=== PATIENT | male | born 1975 | race Caucasian/White ===

== ENCOUNTER 2018-03-07 23:49 | Inpatient (IN) | payer SELFPAY ==
[2018-03-08] MEDS ORDERED: Morphine 4 MG/ML VIAL ONE (00:32)
[2018-03-08] MEDS ORDERED: Ondansetron PF 4 MG/2 ML Vial ONE (00:32)
[2018-03-08 00:33] LABS: Hemoglobin 18.1 g/dL (14.0-18.0); Mean Corpuscular Hemoglobin 34.4 pg (27.0-31.0); Mean Corpuscular Volume 88.9 fL (78.0-98.0); Red Blood Cell (RBC) Count 5.25 mill/uL (4.70-6.10); White Blood Cell (WBC) Count 13.9 thou/uL (4.8-10.8)
[2018-03-08 00:51] LABS: Band 5 % (5-11); Eosinophils 5 % (0-10); Lymphocytes 9 % (21-51); MDiff Complete? YES; Mean Corpuscular HGB CONC 38.7 g/dL (32.0-36.0); Mean Platelet Volume 9.3 fL (7.4-10.4); Monocytes 3 % (0-10); Neutrophil 77 % (42-75); PLT Morphology Comment Appears Adequate; Platelet Count 157 thou/uL (130-400); Polychromasia SLIGHT = 2-3 cells (100X) (0-2/hpf); RBC Distribution Width 12.5 % (11.5-14.5); Reactive Lymphocytes 1 % (0-10)
[2018-03-08 00:56] LABS: CKMB 1.4 ng/mL (0-6.6); Troponin I Less than 0.010 ng/mL (< 0.028)
[2018-03-08 02:16] LABS: Carbon Dioxide 22 mmol/L (22-29); Chloride 102 mmol/L (98-107); Potassium 4.2 mmol/L (3.5-5.1); Sodium 137 mmol/L (136-145)
[2018-03-08 02:19] LABS: Anion Gap 17 mmol/L (10-20); BUN (Urea Nitrogen) 8 mg/dL (8.9-20.6); Bilirubin, Total 0.6 mg/dL (0.2-1.2); Calc. Creatinine Clearance 0 mL/min (70-130); Calcium 8.6 mg/dL (7.8-10.44); Estimated GFR-MDRD Greater than 90; Glucose 262 mg/dL (70-105); Protein, Total 6.7 g/dL (6.0-8.3)
[2018-03-08 02:20] LABS: ALT (SGPT) 36 U/L (8-55); AST (SGOT) 28 U/L (5-34); Albumin 4.4 g/dL (3.5-5.0); Alkaline Phosphatase 128 U/L (40-150); Globulin 2.3 g/dL (2.4-3.5); Lipase 705 U/L (8-78)
[2018-03-08 03:17] LABS: Bilirubin Negative (Negative); Blood, Urine Negative (Negative); Clarity CLEAR (Clear); Glucose, Urine (Dipstick) >=1000 mg/dL (Negative); Leukocyte Negative (Negative); Nitrite Negative (Negative); Protein, Urine (Dipstick) 100 mg/dL (Neg-Trace); Urobilinogen 0.2 mg/dL (0.2-1.0); pH, Urine 5.5 (5.0-9.0)
[2018-03-08 03:18] LABS: Bacteria/HPF None Seen HPF (None Seen); Hyaline Casts/LPF 0-3 HYALINE CAST LPF (0-3 Hyaline); Pathc Cast-AUWi Flag 0.58 (0-2.49); RBC/HPF 0-3 HPF (0-3); Squamous Epithelial 0-3 HPF (0-3)
[2018-03-08 03:22] LABS: Specific Gravity, Urine Greater than 1.060 (1.002-1.036)
[2018-03-08] MEDS ORDERED: Ondansetron PF 4 MG/2 ML Vial IVP PRN (03:58)
[2018-03-08] MEDS ORDERED: Zolpidem Tartrate 5 MG TAB PO PRN (03:58)
[2018-03-08] MEDS ORDERED: Morphine 4 MG/ML VIAL SLOW IVP PRN (03:58)
[2018-03-08] MEDS ORDERED: HumaLOG 300 UNITS/3 ML VIAL SC PRN ×2 (03:58)
[2018-03-08] MEDS ORDERED: Calcium Carbonate 500 MG ChewTAB PO PRN (03:58)
[2018-03-08] MEDS ORDERED: Bisacodyl 5 MG TAB PO PRN (03:58)
[2018-03-08] MEDS ORDERED: Bisacodyl 10 MG SUPP PR PRN (03:58)
[2018-03-08] MEDS ORDERED: Senokot S 8.6-50 MG TAB PO PRN (03:58)
[2018-03-08] MEDS ORDERED: HYDROcodone/Acetaminophen 10/325 mg Tablet PO PRN (03:58)
[2018-03-08] MEDS ORDERED: Loperamide HCl 2 MG CAP PO PRN (03:58)
[2018-03-08] MEDS ORDERED: Dextrose 5% in Water 1,000 ML IV PRN (03:58)
[2018-03-08] MEDS ORDERED: Acetaminophen 325 MG TAB PO PRN (03:58)
[2018-03-08] MEDS ORDERED: Ondansetron ODT 4 MG TAB PO PRN (03:58)
[2018-03-08] MEDS ORDERED: Guaifenesin DM 100-10/5 ML UDCUP PO PRN (03:58)
[2018-03-08] MEDS ORDERED: Dextrose 50% Abboject 50 ML SYRINGE SLOW IVP PRN (03:58)
--- NOTE | 2018-03-08 04:18 | HP ---
PRIMARY CARE PHYSICIAN: Patient is a city call admission. REASON FOR ADMISSION: Acute pancreatitis. HISTORY OF PRESENT ILLNESS: A 42-year-old male who is originally from [place], [place]. He has underly ing history of hypertriglyceridemia, but he is not taking any medication, who came to emergency room with complaint of epigastric abdominal pain, nausea, and vomiting. Patient reports yesterday that me ans on Tuesday afternoon after food, he started having vague abdominal discomfort and he had one episo de of vomiting. On that day, he did not feel good, but he did not have any significant intense pain and that is why he did not go to the hospital. On Tuesday morning, he started driving from [place] to go back to [place] and he was having gradually increasing abdominal pain. Afternoon time, he has to get out of from his drug for vomiting several times when he was driving from [place] to [place] in afte rnoon time. He had several times vomiting as well as his abdominal pain intensity was getting worse, which he pointed in epigastric area radiating to back and subsequently he was having diffuse abdomin al pain. His intensity of pain was about 10/10. He did not have any fever or chills. He denies any melena, hematochezia, diarrhea. He denies any UTI symptoms. He denies any upper or lower respirato ry symptoms. He denies any chest pain, orthopnea, PND. He denies any palpitation, dizziness or sync ope. He denies any alcohol abuse, but the patient reports that he had hypertriglyceridemia and it wa s in 6000, but he was given prescription for fish oil, but patient is allergic to FISH and that is wh y he was not taking any medication. REVIEW OF SYSTEMS: The following complete review of systems was negative, unless otherwise mentioned in the HPI or below: Constitutional: Weight loss or gain, ability to conduct usual activities. Sk in: Rash, itching. Eyes: Double vision, pain. ENT/Mouth: Nose bleeding, neck stiffness, pain, te nderness. Cardiovascular: Palpitations, dyspnea on exertion, orthopnea. Respiratory: Shortness of breath, wheezing, cough, hemoptysis, fever or night sweats. Gastrointestinal: Poor appetite, abdom inal pain, heartburn, nausea, vomiting, constipation, or diarrhea. Genitourinary: Urgency, frequenc y, dysuria, nocturia. Musculoskeletal: Pain, swelling. Neurologic/Psychiatric: Anxiety, depressio n. Allergy/Immunologic: Skin rash, bleeding tendency. Please see my HPI for pertinent positive and negative. All other review of systems reviewed and negative except as mentioned in the HPI. PAST MEDICAL HISTORY: Diabetes type 2, hypertriglyceridemia, obesity, hypertension, history of pancr eatitis, hypertriglyceridemia. PAST SURGICAL HISTORY: Left hand surgery, back surgery. PAST PSYCHIATRIC HISTORY: Reviewed and negative. SOCIAL HISTORY: Patient is not . He smokes about half pack per day. He denies any alcohol a buse. He denies any other illicit drug abuse. FAMILY HISTORY: No family history of coronary artery disease, stroke or cancer. Diabetes runs among several family members. Cholesterol runs among several family members. ALLERGIES: ASPIRIN and PENICILLIN. CURRENT HOME MEDICATIONS: Patient is not taking any prescribed or non-prescribed medication. EMERGENCY ROOM COURSE: Patient has received 2 liters of IV fluid in the emergency room, morphine 4 m g x2 and Zofran 4 mg. PHYSICAL EXAMINATION: VITAL SIGNS: Currently, blood pressure 159/105, pulse 113, respiratory rate 16, temperature 98.1, sa turation 95% on room air, weight 134.7 kilograms. GENERAL: Patient is in distress due to abdominal pain, hypertensive, tachycardic. HEAD: Normocephalic, atraumatic. EYES: Pupils are round, reactive to light. Extraocular muscles intact. ENT: Oropharynx within normal limits. Dry appearing mucous membranes. No oral lesion, no pharyngea l erythema, no exudate. NECK: Supple, no JVD, no thyromegaly, no carotid bruit. LUNGS: Clear to auscultation without any rhonchi or rales. CARDIAC: S1, S2 regular, tachycardia, no murmur, no gallop, no rub. ABDOMEN: Diffuse discomfort, but predominantly epigastric tenderness, no peritoneal sign, no guardin g, no rigidity. Obesity present. No suprapubic tenderness. BACK: No gross CVA tenderness. EXTREMITIES: Upper extremity, passive movement of all joints are normal. Lower extremity, no edema. Good distal pulsation. SKIN: Patient does have surgical scar on lower back. No drainage. PSYCHIATRIC: Normal affect. NEUROLOGIC: Nonfocal examination. SIGNIFICANT LABORATORY DATA: CT brain based on my review, no acute intracranial process. CT of the abdomen and pelvis consistent with acute pancreatitis, hepatosplenomegaly, fatty liver, nonobstructiv e left renal calculus. CBC: WBC 13.9, hemoglobin 18.1, platelets 157 with bandemia. BMP: Sodium 1 37, potassium 4.2, chloride 102, carbon dioxide 22, anion gap 17, BUN 8, creatinine 0.85, glucose 262 , calcium 8.6. LFT: AST 28, ALT 36, alkaline phosphatase 128, albumin 4.4, lipase 705. CK-MB 1.4, troponin I less than 0.010. Urinalysis high specific gravity, glucosuria, proteinuria, ketonuria. ASSESSMENT AND PLAN: 1. Acute pancreatitis, suspecting from hypertriglyceridemia. Patient does not have any alcohol abus e history. His LFT is normal, does not suspect any gallbladder pathology. His clinical presentation of abdominal pain radiating to back consistent with acute pancreatitis. We will check lipid profile , CRP, magnesium, phosphorus, amylase and lipase tomorrow. We will consult student development specialist. We w ill treat him with n.p.o. status except medications. Morphine 2 mg every 2 hourly given for pain. W e will continue with IV fluid and NS at 150 mL per hour, incentive spirometry advised. We will monit or labs daily. Once patient's pain is under control, then we will start clear liquid and advancing h is diet. 2. Diabetes type 2. We will check hemoglobin A1c. We will continue with insulin as per sliding sca le protocol. Diabetic diet will be given when patient able to tolerate p.o. 3. Hypertension. We will use p.r.n. basis antihypertensive medication. 4. Hypertriglyceridemia. We will start TriCor 145 mg p.o. daily. 5. Morbid obesity. Dietary education given. Healthy lifestyle measures discussed with the patient. 6. Tobacco abuse disorder. Patient is given smoking cessation counseling. Healthy lifestyle measur es discussed with the patient. 7. Systemic inflammatory response syndrome criteria due to noninfectious etiology secondary to pancr eatitis. We will monitor on telemetry floor. We will repeat labs tomorrow. 8. Deep venous thrombosis prophylaxis. Lovenox 40 mg subcu daily. 9. Gastrointestinal prophylaxis, Pepcid 20 mg IV b.i.d. 10. Code status: The patient is FULL CODE. The patient is making his decision by himself. Disposition plan based on clinical course. We are expecting patient's stay in hospital more than 2 m idnights. Plan of care discussed with the patient in detail.
--- NOTE | 2018-03-08 08:15 | CT ---
PRELIMINARY REPORT/[facility]/EMERGENTY AFTER-HOURS PROCEDURE CT Head Without Intravenous Contrast EXAM DATE/TIME: 03/08/2018 12:33 AM CLINICAL HISTORY: 42 years old, male; Signs and symptoms; Dizziness; Patient HX: Er01, no previous, m44 reports to ed v ia ems C/O vomiting. PT reports vomiting started yesterday 1100. PT reports vomited x5 times in the l ast x20 minutes. PT reports abdominal pain. PT reports rash to the face. PT denies diarrhea or uti sy mptoms. Ems administered 4 MG Zofran TECHNIQUE: Axial computed tomography images of the head/brain without intravenous contrast. COMPARISON: No relevant prior studies available. FINDINGS: Brain: Normal. No hemorrhage. No significant white matter disease. No edema. Ventricles: Normal. No ventriculomegaly. Bones/joints: Normal. No fracture. Sinuses: There is opacification of some of the ethmoid air cells. Mastoid air cells: Normal as visualized. No mastoid effusion. Soft tissues: Normal. Vasculature: There is a prominent calcification in anterior falx. IMPRESSION: 1. No significant intracranial abnormality identified. 2. Ethmoid sinus disease. Thank you for allowing us to participate in the care of your patient. Dictated and Authenticated by: Gerald Gomez MD 03/08/2018 1:34 AM Central Time ([place] & [place]) FINAL REPORT CT BRAIN: HISTORY: Vomiting. Abdominal pain. Facial rash. Diarrhea. Altered mental status. FINDINGS: CT images of brain obtained. The brain is unremarkable. No evidence of intracranial masses, hemorrhages, strokes, or contusions s een. Final report. Preliminary exam was performed by [facility]. POS: [facility]
--- NOTE | 2018-03-08 08:23 | RAD ---
UPRIGHT PORTABLE CHEST ONE VIEW: History: 42-year-old male with history of vomiting and nausea. FINDINGS: Heart size is normal. The lungs are clear. No pneumonia, edema, or pleural effusion or other acute pr ocess. IMPRESSION: No acute intrathoracic disease. POS: [facility]
--- NOTE | 2018-03-08 08:27 | CT ---
PRELIMINARY REPORT/[facility]/EMERGENTY AFTER-HOURS PROCEDURE CT Abdomen and Pelvis With Intravenous Contrast EXAM DATE/TIME: 03/08/2018 12:37 AM CLINICAL HISTORY: 42 years old, male; Signs and symptoms; Abdominal tenderness and bloating; Additional info: Er01, no previous, m44 reports to ed via ems C/O vomiting. PT reports vomiting started yesterday 1100. PT repo rts vomited x5 times in the last x20 minutes. PT reports abdominal pain. PT reports rash to the face. PT denies diarrhea or uti symptoms. Ems administered 4 MG Zofran TECHNIQUE: Axial computed tomography images of the abdomen and pelvis with intravenous contrast. Coronal reformatted images were created and reviewed. COMPARISON: No relevant prior studies available. FINDINGS: Tubes, catheters and devices: A lumboperitoneal shunt terminates in mid abdomen. Lower thorax: Right hilar calcifications are consistent with granulomatous disease. There is a calcif ied granuloma in the right lung base. ABDOMEN: Liver: There is evidence of fatty infiltration of the enlarged liver. Gallbladder and bile ducts: Normal. No calcified stones. No ductal dilation. Pancreas: The pancreas is enlarged. There is peripancreatic fat infiltration. Spleen: The spleen is enlarged measuring 14.9 x 8.8 x 15.4 cm. Adrenals: Normal. No mass. Kidneys and ureters: There is a 3 mm nonobstructing calculus in the lower pole of the left kidney. Th ere is a 2.8 cm cyst in the left kidney. There is a 1.2 cm cyst in the right kidney. Stomach and bowel: Normal. No obstruction. Appendix: The appendix is unremarkable. PELVIS: Bladder: Unremarkable as visualized. Reproductive: Calcifications in the prostate are nonspecific. ABDOMEN and PELVIS: Intraperitoneal space: Normal. No free air. No significant fluid collection. Bones/joints: No fracture. No dislocation. Soft tissues: There is infiltration of subcutaneous fat adjacent to the shunt. Vasculature: Normal. No abdominal aortic aneurysm. Lymph nodes: Normal. No enlarged lymph nodes. IMPRESSION: 1. Evidence of acute pancreatitis. 2. Hepatosplenomegaly. 3. Fatty infiltration of the liver. 4. Nonobstructing left renal calculus. 5. Additional findings as above. Thank you for allowing us to participate in the care of your patient. Dictated and Authenticated by: Gerald Gomez MD 03/08/2018 1:52 AM Central Time ([place] & [place]) FINAL REPORT CT ABDOMEN AND PELVIS WITH IV CONTRAST: Date: 03-08-18 Performed on emergency basis at 0040 hours. History: Abdomen pain. FINDINGS: I agree with the preliminary report by Dr. Gomez from [facility]. Evidence of acute pancr eatitis. Tiny nonobstructing left renal calculus. Radiopaque wire or catheter throughout peritoneal c avity. Code QA
[2018-03-08] MEDS ORDERED: Famotidine/PF 20 mg/2ml Vial ONE (10:13)
[2018-03-08] MEDS ORDERED: Enoxaparin Sodium 40 MG/0.4 ML SYRINGE ONE (10:13)
[2018-03-08] MEDS ORDERED: ISOVUE-370 76%-LOCM 1 ML ONE (11:15)
[2018-03-08 12:58] VITALS: BMI 39.9
[2018-03-08] MEDS: Sodium Chloride 0.9% 1,000 ML IV SCH ×4 (13:00→20:05)
[2018-03-08] MEDS: Enoxaparin Sodium 40 MG/0.4 ML SYRINGE SC SCH (15:46)
[2018-03-08] MEDS: Famotidine/PF 20 mg/2ml Vial SLOW IVP SCH ×2 (15:47→20:04)
[2018-03-08] MEDS: Fenofibrate Nanocrystallized 145 MG TAB PO SCH (15:47)
[2018-03-09] MEDS: Sodium Chloride 0.9% 1,000 ML IV SCH ×2 (03:01→10:30)
[2018-03-09 05:08] LABS: #Eosinphils 0.3 thou/uL (0.0-0.7); #Lymphocytes 1.2 thou/uL (1.20-3.40); #Monocytes 0.6 thou/uL (0.11-0.59); #Neutrophils 10.6 thou/uL (1.40-6.50); %Basophils 0.4 % (0.0-1.0); %Eosinophils 2.1 % (0.0-10.0); %Lymphocytes 9.4 % (21.0-51.0); %Monocytes 4.5 % (0.0-10.0); %Neutrophils 83.6 % (42.0-75.0); Hemoglobin 15.4 g/dL (14.0-18.0); Mean Corpuscular HGB CONC 34.9 g/dL (32.0-36.0); Mean Corpuscular Hemoglobin 31.8 pg (27.0-31.0); Mean Corpuscular Volume 91.2 fL (78.0-98.0); Mean Platelet Volume 9.2 fL (7.4-10.4); Platelet Count 140 thou/uL (130-400); RBC Distribution Width 12.5 % (11.5-14.5); Red Blood Cell (RBC) Count 4.83 mill/uL (4.70-6.10); White Blood Cell (WBC) Count 12.6 thou/uL (4.8-10.8)
[2018-03-09 05:15] LABS: Hemoglobin A1c 8.5 % (4.0-6.0)
[2018-03-09 05:53] LABS: ALT (SGPT) 20 U/L (8-55); AST (SGOT) 22 U/L (5-34); Albumin 3.6 g/dL (3.5-5.0); Alkaline Phosphatase 103 U/L (40-150); Anion Gap 17 mmol/L (10-20); BUN (Urea Nitrogen) Less than 4 mg/dL (8.9-20.6); Bilirubin, Total 1.2 mg/dL (0.2-1.2); CRP (Inflammatory) 21.73 mg/dL (= or < 0.5); Calc. Creatinine Clearance 230 mL/min (70-130); Calcium 8.3 mg/dL (7.8-10.44); Carbon Dioxide 18 mmol/L (22-29); Cardiac Risk 38.4 (Less than 4.5); Chloride 100 mmol/L (98-107); Cholesterol 384 mg/dl (< 200 Desired); Estimated GFR-MDRD Greater than 90; Globulin 4.1 g/dL (2.4-3.5); Glucose 219 mg/dL (70-105); HDL Cholesterol 10 mg/dL (>60 Neg Risk); Lipase 115 U/L (8-78); Magnesium 2.4 mg/dL (1.6-2.6); Phosphorus 1.8 mg/dL (2.3-4.7); Potassium 3.5 mmol/L (3.5-5.1); Protein, Total 7.7 g/dL (6.0-8.3); Sodium 131 mmol/L (136-145)
[2018-03-09 06:40] LABS: Triglycerides 1944 mg/dL (Less than 150)
--- NOTE | 2018-03-09 07:58 | CON ---
DATE OF CONSULTATION: 03/08/2018 REFERRING PHYSICIAN: Jewel Cortez M.D. REASON FOR CONSULTATION: Acute pancreatitis. HISTORY OF PRESENT ILLNESS: Mr. Kenan Aragon is a 42-year-old male who lives in [place]. He was on his way from [place] to [place], on the day he felt some abdominal pain, nausea, and vomiting a nd was seen in the ER. The patient apparently has been having abdominal pain over the last 3-4 days and pain got worse yesterday. The pain is periumbilical and going towards the back. He has severe n ausea and vomiting. There is no hematemesis or melena. The patient was found to have elevated lipas e of 705 on admission to the hospital. An abdominal CAT scan shows a fatty liver and also peripancre atic swelling of the pancreas indicative of pancreatitis. The patient does not drink any alcohol. A pparently, he has had some episodes of bronchitis in 3 years and was hospitalized in [place]. He was told to have hypertriglyceridemia causing the pancreatitis. The patient was on supplementation medic ine, but he never took any medicines. He was placed on fish oil capsule, but he could not tolerate i t. He has not tried any statin for any medication. He claims that he is not able to go and get the medicine because he has no insurance. The patient is also extremely obese. The patient is sleepy fr om pain medication, but appears comfortable. He had no more nausea or vomiting. Although, he has ch emistry panel, there is no lipid panel done on this admission. Liver function tests are actually nor mal with a bilirubin 0.6, alkaline phosphatase is 128 and transaminases are normal. Lipase is at 705 . He is on IV fluids, n.p.o., and IV analgesics at the present time. No other relevant history. ALLERGIES: ASPIRIN, PENICILLIN. SOCIAL HISTORY: The patient does not drink alcohol. No history of drug abuse. He does smoke one massey lf pack of cigarettes per day. MEDICAL ILLNESSES: 1. Obesity. 2. Hyperlipidemia. 3. Type 2 diabetes mellitus, not on any medication. 4. Past history of pancreatitis about 3 years ago. SURGERIES: He has had a ventriculoperitoneal shunt placement done in [place] few years ago afte r he has had passing out. FAMILY HISTORY: No family history of CVA, cancer, pancreatitis. Family history of diabetes. MEDICATIONS AT HOME: None. REVIEW OF SYSTEMS: A 10-point system review: Constitutional: No history of fever. No weight loss or good appetite. Respiratory System: No history of chronic cough, hemoptysis, dyspnea. Cardiovasc ular System: No chest pain, no palpitation, no dyspnea, orthopnea or PND. Gastrointestinal: Abdomi nal pain, nausea, and vomiting. Genitourinary: No dysuria or hematuria. Musculoskeletal: Unremark able. Endocrine: Unremarkable. Hematological: Unremarkable. PHYSICAL EXAMINATION: GENERAL: The patient is obese, appears comfortable. He is actually very sleepy at the present time. VITAL SIGNS: He is afebrile. Pulse is 114, blood pressure is 150/95. HEENT: Conjunctivae clear. NECK: Supple. No adenitis or thyromegaly noted. CARDIOVASCULAR SYSTEM: First and second heart sounds normal. LUNGS: Clear to auscultation. ABDOMEN: Distended and firm to palpate. Abdomen is tender over the epigastric area, periumbilical a kelsey. He has hyperactive bowel sounds. No rebound or guarding. Bowel sounds normal. EXTREMITIES: No edema. LABORATORY DATA: CBC shows WBC 13,900, hemoglobin 18.1, hematocrit 46.7, platelet count is 157,000, polymorphs 77, bands 5, lymphocytes 9. Chemistry panel and the electrolytes are actually normal. Gl ucose is 262, calcium 8.2, bilirubin 0.6, AST is 28, ALT 36, alkaline phosphatase 128, total protein 6.7, albumin 4.4, globulin 2.3, lipase 705. An abdominal CAT scan done shows fatty liver and also pe ripancreatic edema and swelling indicative of acute pancreatitis. CLINICAL IMPRESSION: 1. A 42-year-old male with history of type 2 diabetes, hyperlipidemia, presented with abdo bryce pain, nausea, vomiting, and evidence of pancreatitis. He had similar episode 3 years ago and w as hospitalized in [place]. He was told to have markedly elevated hyperlipidemia. He never took any medicine to control his hyperlipidemia. There is no lipid panel done during this admission. 2. Obesity. 3. Type 2 diabetes. 4. History of POST PARTUM NURSE shunt placement in [place] years ago for hydrocephalus. RECOMMENDATIONS: 1. IV fluids, analgesics. 2. Follow up labs. 3. Lipid panel. I had a long talk with the patient and patient's and explained to them that the importance of co ntrolling his hyperlipidemia. The patient tells me that he probably may not go back to see doctor in [place] as he does not have any insurance. I tried to emphasize as much as possible the importance o f controlling the hyperlipidemia to prevent severe attacks of pancreatitis. In the meantime, we woul d recommend a followup labs and symptomatic treatment.
[2018-03-09] MEDS: Enoxaparin Sodium 40 MG/0.4 ML SYRINGE SC SCH (08:41)
[2018-03-09] MEDS: Fenofibrate Nanocrystallized 145 MG TAB PO SCH (08:41)
[2018-03-09] MEDS: Famotidine/PF 20 mg/2ml Vial SLOW IVP SCH (08:42)
--- NOTE | 2018-03-09 13:33 | PRG ---
DATE OF SERVICE: 03/09/2018 SUBJECTIVE: This is a 42-year-old male with abdominal pain, nausea, vomiting, and evidence of pancreatitis. The patient does not drink alcohol. He has a past history of hyperlipidemia causi ng pancreatitis. His serum triglyceride level is 1944 and cholesterol is 384. The lipase came down to 115 today. He is actually feeling a whole lot better. His abdominal pain is markedly improved. He has no nausea, no vomiting. PHYSICAL EXAMINATION: GENERAL: He is obese, appears comfortable. VITAL SIGNS: Afebrile, pulse is 111, blood pressure 124/70. CARDIOVASCULAR SYSTEM AND LUNGS: Within normal limits. ABDOMEN: Soft. Abdomen is firm yesterday, but today is very soft and nontender. He has active luis daniel l sounds. LABORATORY DATA AND X-RAY FINDINGS: Today shows a lipase dropping down to 115. The liver enzymes ar e normal. The triglyceride is 1944, cholesterol 384. Chem-7 is normal. CBC: Mild leukocytosis of 12,600, normal hemoglobin and hematocrit. CLINICAL IMPRESSION: Acute pancreatitis most likely from hyperlipidemia. The patient does not drink alcohol. He is doing a whole lot better and his numbers are getting better. RECOMMENDATIONS: Clear liquid diet and advance diet as tolerated. Hopefully, the patient can be dis charged home in the next 24 hours. I had a long talk with the patient and I explained to him that ne ed for control of hyperlipidemia with aggressive therapy including weight loss, low carb diet and sarath ropriate medication. The patient comes from [place] and he will probably see an Oncologist in [place].
[2018-03-09 17:04] VITALS: BP 143/87; TEMP 98.3
[2018-03-09] MEDS ORDERED: Atorvastatin Calcium 20 MG TAB PO SCH (21:00)
--- NOTE | 2018-03-10 01:27 | DIS ---
DATE OF ADMISSION: 03/08/2018 DATE OF DISCHARGE: 03/09/2018 DISCHARGE DIAGNOSES: 1. Acute pancreatitis secondary to triglyceridemia. 2. History of hypertriglyceridemia. 3. Obesity. 4. Hyperlipidemia. 5. Diabetes type 2. HOSPITAL COURSE: The patient is a very pleasant 42-year-old male with a history of pancreatitis in t he past, last one last year who initially presented to the hospital with complaints of abdominal pain , nausea, vomiting. The patient did have a CT abdomen and pelvis, which indicated evidence of acute pancreatitis, hepatosplenomegaly, and fatty infiltrate of the liver. He also had a nonobstructive le ft renal calculi. The patient was kept n.p.o. initially. His triglyceride level was 1944. Choleste rol was 384. Lipase continued to improve. His hemoglobin A1c was 8.5. The patient tolerated a regu lar diet. He will be discharged to home today. He has no abdominal pain, nausea, vomiting. I did s peak with him extensively and his girlfriend is at the bedside about taking his medications as prescr ibed. The patient also needs a followup in 3 months to check lab work to see if his numbers are impr oving. I did explain to the patient that he is diabetic, most likely secondary to his underlying catalan creatitis, which is caused by his triglycerides. The patient does not really know his family history since he is adopted. The patient also has a history of hydrocephalus. He does have a ENGINE LATHE TENDER shunt. PHYSICAL EXAMINATION: VITAL SIGNS: Temperature of 99.6, 18, 92, 122/71. GENERAL: He is awake, alert, and oriented x3, does not appear in any distress. CARDIOVASCULAR: S1, S2 present. No murmurs, rubs, or gallops. ABDOMEN: Soft, nontender. Bowel sounds are present x2. EXTREMITIES: No edema. Pedal pulses are present x2. ASSESSMENT AND PLAN: The patient discharge medications will be as following: Metformin 500 mg daily , fenofibrate 145 mg daily, atorvastatin 20 mg at bedtime. Again, he will be discharged to home. He will follow up with primary care and his girlfriend will take him to a clinic in [place] since t he patient does not have insurance.
--- NOTE | 2018-03-11 11:52 | EKG ---
Test Reason : ABD PAIN Blood Pressure : / mmHG Vent. Rate : 111 BPM Atrial Rate : 111 BPM P-R Int : 188 ms QRS Dur : 082 ms QT Int : 334 ms P-R-T Axes : 061 067 002 degrees QTc Int : 454 ms Sinus tachycardia Otherwise normal ECG Confirmed by JAY WILEY DO ([id number]), web content editor GERA MULLEN ([id number]) on 03/11/2018 11:52:09 AM Referred By: DEVANG WILEY Confirmed By:JAY WILEY DO
== END 2018-03-09 17:19 | disposition home or self-care (01) | DRG 439 ==
LOC: ERS 23:49 → ERHOLD 03-08 02:51 → T4-B 03-08 12:37
PROVIDERS: ADMIT Internal Medicine; ATTEND Internal Medicine
DX: K85.90 Acute pancreatitis without necrosis or infection, unspecified (principal); Z68.41 Body mass index [BMI] 40.0-44.9, adult; E11.9 Type 2 diabetes mellitus without complications; E78.1 Pure hyperglyceridemia; E66.01 Morbid (severe) obesity due to excess calories
CPT/HCPCS: 36415; 36416; 70450; 71045; 74177; 80053; 80061; 81003; 81015; 82150; 82553; 83036; 83690; 83735; 84100; 84443; 84484; 85025; 86140; 93005; 96361; 96372; 96374; 96375; 96376; J1650; J2270; J2405; S0028